=== PATIENT | male | born 1945 | race Caucasian/White ===

== ENCOUNTER → 2020-11-21 | Outpatient (CLI) | payer OTHER ==
[~2020-11-21] VITALS: Ht 165.1 cm; Wt 65.0 kg
[~2020-11-21] MED LIST: ATOR40TA70 PO
== END | disposition home or self-care (01) ==
LOC: PREOP 06:10
PROVIDERS: ATTEND Surgery
DX: Z01.818 Encounter for other preprocedural examination (principal)

== ENCOUNTER 2020-11-29 08:53 | Day surgery (SDC) | payer MEDICARE, OTHER ==
[~2020-11-29] VITALS: Ht 165.1 cm; Wt 65.0 kg
[~2020-11-29 08:53] MED LIST changes: +LACTATED RINGERS 1,000 ML IV ONE
[2020-11-29] MEDS ORDERED: LACTATED RINGERS 1,000 ML IV STA (08:59)
[2020-11-29 09:12] VITALS: BP 146/78
[2020-11-29] MEDS ORDERED: PROPOFOL INJECTION 50 ML IV ONE (09:52)
--- NOTE | 2020-11-29 10:04 | Progress Note-Pre Operative ---
Pre-Operative Progress Note H&P Reviewed The H&P was reviewed, patient examined and no changes noted. Date Seen by Provider: Nov 29, 2020 Time Seen by Provider: 10:03 Date H&P Reviewed: Nov 29, 2020 Time H&P Reviewed: 10:03 Pre-Operative Diagnosis: screening colonoscopy NILDA TRIPP DO Nov 29, 2020 10:04
--- NOTE | 2020-11-29 10:31 | Progress Note-Post Operative ---
Post-Operative Progess Note Surgeon (s)/Career Professional (s) Surgeon NILDA TRIPP DO Career Professional: na Pre-Operative Diagnosis screening colonoscopy Post-Operative Diagnosis normal colon Procedure & Operative Findings Date of Procedure 11/29/20 Procedure Performed/Findings colonoscopy Anesthesia Type per shot tube machine tender Estimated Blood Loss Estimated blood loss (mL): none Specimens/Packing Specimens Removed na NILDA TRIPP DO Nov 29, 2020 10:31
--- NOTE | 2020-11-29 10:32 | Discharge Inst-Simple/Standard ---
Discharge Inst-Standard Patient Instructions/Follow Up Plan of Care/Instructions/FU: Follow up on as needed basis. Activity as Tolerated: Yes Discharge Diet: Regular Diet NILDA TRIPP DO Nov 29, 2020 10:32
[2020-11-29 10:34] VITALS: BP 85/51
[2020-11-29 10:39] VITALS: BP 90/53
[2020-11-29 10:40] VITALS: BP 104/55
[2020-11-29 11:10] VITALS: BP 149/79
[2020-11-29 11:25] VITALS: BP 149/79
--- NOTE | 2020-11-29 11:59 | Anesthesia-General Post-Op ---
MAC Patient Condition Mental Status/LOC: Same as Preop Cardiovascular: Satisfactory Nausea/Vomiting: Absent Respiratory: Satisfactory Pain: Controlled Complications: Absent Post Op Complications Complications None Follow Up Care/Instructions Patient Instructions None needed. Anesthesiology Discharge Order Discharge Order Patient is doing well, no complaints, stable vital signs, no apparent adverse anesthesia problems. No complications reported per nursing. DMITRI LOZANO CRNA Nov 29, 2020 11:59
--- NOTE | 2020-11-29 14:00 | OPERATIVE REPORT ---
DATE OF SERVICE: 11/29/2020 PREOPERATIVE DIAGNOSIS: Screening colonoscopy. POSTOPERATIVE DIAGNOSIS: Normal colon. PROCEDURE PERFORMED: Colonoscopy. SURGEON: Nilda Evans DO. ANESTHESIA: Per VENEER JOINTER OPERATOR. ESTIMATED BLOOD LOSS: None. COMPLICATIONS: None. INDICATIONS FOR PROCEDURE: The patient is a 75-year-old male needing screening colonoscopy. He understands the risks and benefits of procedure and wishes to proceed with the procedure. Consent was signed in the chart. DESCRIPTION OF PROCEDURE: The patient was taken to the endoscopy suite and placed in a left lateral recumbent position. Timeout was performed. Digital rectal exam was performed. No palpable polyps, masses or ulcerations. Scope was inserted in the rectum and advanced all the way to cecum with minimal difficulty. Prep was adequate with irrigation and suction. Scope was then slowly retracted back. No polyps, masses or ulcerations within the cecum, ascending, transverse, descending and sigmoid colon. Once in the rectum, scope was retroflexed noting no other pathology. Scope was returned to its normal position, slowly withdrawn until completely removed. The patient tolerated the procedure well without any complications and taken to recovery room in stable condition. RECOMMENDATIONS: The patient will need repeat colonoscopy on as needed basis. If he has any change in condition, should be reevaluated. Otherwise, does not need any further colonoscopies. Job ID: [id number] DocumentID: [id number] Dictated Date: 11/29/2020 10:30:45 Customer Service Agent Date: 11/29/2020 13:59:50 Dictated By: NILDA EVANS DO
== END 2020-11-29 11:25 | disposition home or self-care (01) ==
LOC: ENDO 08:53
PROVIDERS: ATTEND Surgery
DX: Z12.11 Encounter for screening for malignant neoplasm of colon (principal); Z79.899 Other long term (current) drug therapy
CPT/HCPCS: 82947; G0121